=== PATIENT | female | born 2000 | race Two or more races ===

== ENCOUNTER 2022-09-09 08:44 | Emergency (ER) | payer OTHER ==
[~2022-09-09] VITALS: Ht 160 cm; Wt 51.4 kg
[2022-09-09] MEDS ORDERED: CEPH-510 PO (09:12)
[2022-09-09 10:13] VITALS: BP 99/65
== END 2022-09-09 10:14 | disposition home or self-care (01) ==
LOC: ER 08:44
DX: J06.9 Acute upper respiratory infection, unspecified (principal); R51.9 Headache, unspecified
CPT/HCPCS: 70450; 71045; 87804

== ENCOUNTER 2022-12-26 18:00 | Emergency (ER) | payer OTHER ==
[~2022-12-26] VITALS: Ht 157.5 cm; Wt 52.0 kg
[~2022-12-26 18:00] MED LIST: CEPH-510 PO
[2022-12-26 18:39] LABS: Urine Bacteria None Seen /hpf (None Seen)
[2022-12-26 18:58] VITALS: BP 119/59
[2022-12-26 19:22] LABS: Urine WBC 20-25 /hpf (0 - 5)
[2022-12-26 19:23] LABS: Urine Blood 2+ /uL (Negative)
[2022-12-26] MEDS ORDERED: NITR-87 PO (19:46)
== END 2022-12-26 19:59 | disposition home or self-care (01) ==
LOC: ER 18:00
DX: N39.0 Urinary tract infection, site not specified (principal)
CPT/HCPCS: 81001

== ENCOUNTER 2023-01-06 18:41 | Emergency (ER) | payer OTHER ==
[~2023-01-06] VITALS: Ht 160 cm; Wt 51.0 kg
[~2023-01-06 18:41] MED LIST changes: +NITR-87 PO
[2023-01-06] MEDS ORDERED: CETITAB29 PO (21:32)
[2023-01-06] MEDS ORDERED: FLUT1SPR9 (21:32)
[2023-01-06 23:10] VITALS: BP 115/80
== END 2023-01-06 23:12 | disposition home or self-care (01) ==
LOC: ER 18:43
DX: J02.8 Acute pharyngitis due to other specified organisms (principal); B97.89 Other viral agents as the cause of diseases classified elsewhere; J31.0 Chronic rhinitis; Z79.899 Other long term (current) drug therapy; Z91.018 Allergy to other foods